=== PATIENT | male | born 1975 | race African-American/Black ===

== ENCOUNTER 2016-02-27 17:00 | Emergency (ER) | payer OTHER ==
[~2016-02-27] VITALS: Ht 190.5 cm; Wt 126.1 kg
--- NOTE | ~2016-02-27 | EKG ---
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
[2016-02-27 18:37] LABS: ABSOLUTE NEUTROPHILS 8.1 thou/uL (1.4-8.2); EOSINOPHILS 0.7 % (0.0-3.0); HEMATOCRIT 41.3 % (42.0-52.0); HEMOGLOBIN 13.7 gm/dL (14.0-18.0); LYMPHOCYTES 32.2 % (24.0-44.0); MCH 26.9 pg (26.0-34.0); MCHC 33.1 % (28.0-37.0); MCV 81.3 fL (80.0-100.0); MONOCYTES 8.6 % (1.0-8.0); PLATELET COUNT 260 thou/uL (150-400); POLYS 57.5 % (36.0-66.0); RBC 5.09 mil/uL (4.50-6.00); RDW 14.9 % (10.5-14.5)
[2016-02-27 18:45] LABS: MANUAL DIFF NO
[2016-02-27 18:51] LABS: CALCIUM 9.6 mg/dL (8.5-10.1); CREATININE 0.9 mg/dL (0.6-1.3); POTASSIUM 3.9 mmol/L (3.5-5.1)
[2016-02-27 18:53] LABS: AMP/METHAMP Negative (Negative); BARBITURATES Negative (Negative); BENZODIAZEPINES Negative (Negative); COCAINE Negative (Negative); METHADONE Negative (Negative); OPIATES Negative (Negative); PCP POSITIVE (Negative); THC POSITIVE (Negative)
[2016-02-27 18:58] LABS: ALBUMIN 4.2 g/dL (3.4-5.0); SALICYLATE 6.5 mg/dL (2.8-20.0); TOTAL BILIRUBIN 0.4 mg/dL (<0.1-1.0)
[2016-02-27 20:01] VITALS: BP 133/75
== END 2016-02-27 20:01 | disposition home or self-care (01) ==
LOC: ER 17:00
PROVIDERS: Physician Assistant
DX: F41.8 Other specified anxiety disorders (principal); Z71.51 Drug abuse counseling and surveillance of drug abuser; I10 Essential (primary) hypertension; F31.9 Bipolar disorder, unspecified; F17.210 Nicotine dependence, cigarettes, uncomplicated; F55.8 Abuse of other non-psychoactive substances; F10.99 Alcohol use, unspecified with unspecified alcohol-induced disorder; Z88.5 Allergy status to narcotic agent; Z88.8 Allergy status to other drugs, medicaments and biological substances

== ENCOUNTER 2016-09-01 16:41 | Inpatient (IN) | payer OTHER ==
[~2016-09-01] VITALS: Ht 188 cm; Wt 111.3 kg
--- NOTE | ~2016-09-01 | EKG ---
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
--- NOTE | ~2016-09-01 | EKG ---
[address] [address] ELECTROCARDIOGRAM REPORT Name: ELI BRAVO Room #: 240-[facility] IN M.R.#: [id number] Admission: 09/01/16 Attend Phys: Burt Looney MD Discharge: 09/05/16 Date of : 75 Report #: [id number] THIS REPORT FOR: //name// [facility] Test Date: 2016-09-02 Test Time: 07:51:50 Pat Name: ELI BRAVO Department: Room: 240 Gender: M Director Of Ancillary Services: Matt WATT : 1975 Requested By: Allie Rizvi Order Number: [id number] MD: Richar Olivares Measurements Intervals [place] Rate: 52 P: 21 AR: 206 QRS: 13 QRSD: 99 T: 21 QT: 452 QTc: 421 Interpretive Statements Sinus rhythm Borderline prolonged AR interval Probable left ventricular hypertrophy Compared to ECG 08/23/2016 11:17:35 No significant changes Electronically Signed On 09-05-2016 21:57:18 CDT by Richar Olivares [email or web address] <ELECTRONICALLY SIGNED> By: Richar Olivares MD 09/05/16 [id number] Richar Olivares MD /EPI
[~2016-09-01 16:41] MED LIST: GLUCOPHAGE500 MG PO; TEGRETOL200 MG PO
[2016-09-01 16:43] VITALS: BP 120/68
[2016-09-01 17:00] LABS: ABSOLUTE NEUTROPHILS 10.4 thou/uL (1.4-8.2); BASOPHILS 0.7 % (0.0-2.0); EOSINOPHILS 0.2 % (0.0-3.0); HEMOGLOBIN 13.5 gm/dL (14.0-18.0); MCH 27.3 pg (26.0-34.0); MCHC 32.8 g/dL (28.0-37.0); MCV 83.1 fL (80.0-100.0); MONOCYTES 6.9 % (1.0-8.0); PLATELET COUNT 228 thou/uL (150-400); POLYS 78.2 % (36.0-66.0); RBC 4.94 mil/uL (4.50-6.00); RDW 14.6 % (10.5-14.5); WBC 13.4 thou/uL (4.0-11.0)
[2016-09-01 17:02] LABS: MANUAL DIFF NO
[2016-09-01 17:08] LABS: ANION GAP 13 mmol/L (7-16); BUN 12 mg/dL (7-18); CALCIUM 9.8 mg/dL (8.5-10.1); CHLORIDE 106 mmol/L (98-107); CO2 23 mmol/L (21-32); CREATININE 1.1 mg/dL (0.7-1.3); GLUCOSE 102 mg/dL (74-106); POTASSIUM 3.3 mmol/L (3.5-5.1); SODIUM 142 mmol/L (136-145)
[2016-09-01 17:18] LABS: ALKALINE PHOSPHATASE 76 U/L (46-116); MAGNESIUM 1.9 mg/dL (1.8-2.4); SGOT 40 U/L (15-37); SGPT 32 U/L (30-65); TOTAL BILIRUBIN 0.3 mg/dL (<0.1-1.0); TOTAL PROTEIN 7.8 g/dL (6.4-8.2); TROPONIN-I < 0.04 ng/mL (<0.04-0.07)
[2016-09-01 19:31] VITALS: BP 95/46
[2016-09-01 19:47] VITALS: BP 113/62
[2016-09-01 23:36] VITALS: BP 113/64
[2016-09-02 03:25] VITALS: BP 113/67
[2016-09-02 03:30] LABS: HEMATOCRIT 39.4 % (42.0-52.0); HEMOGLOBIN 12.8 gm/dL (14.0-18.0); MCH 27.2 pg (26.0-34.0); MCHC 32.4 g/dL (28.0-37.0); MCV 83.9 fL (80.0-100.0); RBC 4.7 mil/uL (4.50-6.00); RDW 14.8 % (10.5-14.5); WBC 14.6 thou/uL (4.0-11.0)
[2016-09-02 03:54] LABS: ANION GAP 8 mmol/L (7-16); BUN 10 mg/dL (7-18); CALCIUM 8.6 mg/dL (8.5-10.1); CHLORIDE 106 mmol/L (98-107); CHOLESTEROL 149 mg/dL (<200); CO2 29 mmol/L (21-32); CREATININE 0.8 mg/dL (0.7-1.3); GLUCOSE 93 mg/dL (74-106); HDL CHOLESTEROL 51 mg/dL (>40); LDL CHOLESTEROL 81 mg/dL (<100); POTASSIUM 3.8 mmol/L (3.5-5.1); SODIUM 143 mmol/L (136-145); TC:HDL 2.9 Ratio (Not establshd); TRIGLYCERIDE 87 mg/dL (<150); TROPONIN-I 0.05 ng/mL (<0.04-0.07); VLDL 17 mg/dL (<40)
[2016-09-02 03:57] LABS: SERUM ASSESSMENT Clear
[2016-09-02 07:56] VITALS: BP 116/77
[2016-09-02] MEDS ORDERED: METFORMIN HCL500 MG PO (09:20)
[2016-09-02] MEDS ORDERED: LISINOPRIL-HCT1 EAC2 PO (09:21)
[2016-09-02] MEDS ORDERED: MOBIC15 MG PO (09:22)
[2016-09-02] MEDS ORDERED: ASPIR 8181 M1 PO (09:23)
[2016-09-02] MEDS ORDERED: CLARITIN10 MG PO (09:24)
[2016-09-02] MEDS ORDERED: REMERON15 MG PO ×2 (09:25)
[2016-09-02] MEDS ORDERED: NEURONTIN250 MG/5 M PO (09:27)
[2016-09-02 16:10] VITALS: BP 123/66
[2016-09-02 19:28] VITALS: BP 127/59
[2016-09-02 23:40] VITALS: BP 124/76
[2016-09-03 03:02] VITALS: BP 122/77
[2016-09-03 08:14] VITALS: BP 142/70
[2016-09-03 12:49] VITALS: BP 144/96
[2016-09-03 16:30] VITALS: BP 116/62
[2016-09-03 20:04] VITALS: BP 105/52
[2016-09-03 23:56] VITALS: BP 111/78
[2016-09-04 04:01] VITALS: BP 104/60
[2016-09-04 12:00] VITALS: BP 114/61
[2016-09-04 21:45] LABS: AMP/METHAMP Negative (Negative); BARBITURATES Negative (Negative); BENZODIAZEPINES Negative (Negative); COCAINE Negative (Negative); METHADONE Negative (Negative); OPIATES Negative (Negative); PCP POSITIVE (Negative); THC POSITIVE (Negative)
[2016-09-04 22:47] VITALS: BP 127/83
== END 2016-09-05 00:20 | DRG 101 ==
LOC: ER 16:41 → 2N 17:56 → ICU 17:56 → 2N 17:56 → EROBS 17:56 → 2N 19:25 → ICU 09-02 18:30
PROVIDERS: Nurse Practitioner; Physician Assistant
DX: G40.909 Epilepsy, unspecified, not intractable, without status epilepticus (principal); E87.6 Hypokalemia; I10 Essential (primary) hypertension; F17.210 Nicotine dependence, cigarettes, uncomplicated; F12.90 Cannabis use, unspecified, uncomplicated; F16.10 Hallucinogen abuse, uncomplicated; F31.9 Bipolar disorder, unspecified; E11.9 Type 2 diabetes mellitus without complications; R94.31 Abnormal electrocardiogram [ECG] [EKG]; Z91.5 Personal history of self-harm; Z79.899 Other long term (current) drug therapy; Z88.6 Allergy status to analgesic agent; Z88.8 Allergy status to other drugs, medicaments and biological substances; Z71.6 Tobacco abuse counseling; Z79.4 Long term (current) use of insulin; Z85.47 Personal history of malignant neoplasm of testis
CPT/HCPCS: 10078; 10081

== ENCOUNTER 2017-12-22 23:15 | Emergency (ER) | payer OTHER ==
[~2017-12-22] VITALS: Ht 190.5 cm; Wt 121.6 kg
[~2017-12-22 23:15] MED LIST changes: +ASPIR 8181 M1 PO; +CLARITIN10 MG PO; +LISINOPRIL-HCT1 EAC2 PO; +METFORMIN HCL500 MG PO; +MOBIC15 MG PO; +NEURONTIN250 MG/5 M PO; +REMERON15 MG PO
[2017-12-23 00:26] VITALS: BP 141/75
== END 2017-12-23 00:48 | disposition home or self-care (01) ==
LOC: ER 23:15
DX: F19.10 Other psychoactive substance abuse, uncomplicated (principal); F17.210 Nicotine dependence, cigarettes, uncomplicated; I10 Essential (primary) hypertension; F31.9 Bipolar disorder, unspecified; F42.9 Obsessive-compulsive disorder, unspecified; Z88.5 Allergy status to narcotic agent; Z88.8 Allergy status to other drugs, medicaments and biological substances

== ENCOUNTER 2019-12-07 13:48 | Emergency (ER) | payer OTHER ==
[~2019-12-07] VITALS: Ht 208.3 cm; Wt 156.5 kg
--- NOTE | 2019-12-07 15:45 | EKG ---
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
[2019-12-07 15:54] LABS: URINE BILIRUBIN NEGATIVE (Negative); URINE BLOOD NEGATIVE (Negative); URINE CLARITY CLEAR; URINE COLOR YELLOW; URINE GLUCOSE-RANDOM* NEGATIVE (Negative); URINE KETONES NEGATIVE (Negative); URINE LEUKOCYTES-REFLEX NEGATIVE (Negative); URINE NITRITE-REFLEX NEGATIVE (Negative); URINE PROTEIN (DIPSTICK) NEGATIVE (Negative); URINE SPECIFIC GRAVITY <= 1.005 (1.005-1.035); URINE UROBILINOGEN 0.2 E.U./dl (0.2-1.0)
[2019-12-07 15:56] LABS: AMP/METHAMP Negative (Negative); BARBITURATES Negative (Negative); BENZODIAZEPINES Negative (Negative); COCAINE Negative (Negative); METHADONE Negative (Negative); OPIATES Negative (Negative); PCP POSITIVE (Negative)
[2019-12-07 16:15] LABS: ABSOLUTE NEUTROPHILS 9.5 thou/uL (1.4-8.2); BASOPHILS 0.8 % (0.0-2.0); EOSINOPHILS 0.1 % (0.0-3.0); HEMATOCRIT 44.5 % (42.0-52.0); HEMOGLOBIN 14.3 gm/dL (14.0-18.0); LYMPHOCYTES 16.8 % (24.0-44.0); MCH 27.1 pg (26.0-34.0); MCHC 32.1 g/dL (28.0-37.0); MCV 84.4 fL (80.0-100.0); MONOCYTES 4.4 % (1.0-8.0); PLATELET COUNT 243 thou/uL (150-400); POLYS 77.9 % (36.0-66.0); RBC 5.27 mil/uL (4.50-6.00); RDW 14.8 % (10.5-14.5); WBC 12.2 thou/uL (4.0-11.0)
[2019-12-07 16:36] LABS: ANION GAP 13 mmol/L (7-16); BUN 7 mg/dL (7-18); CALCIUM 9.9 mg/dL (8.5-10.1); CHLORIDE 107 mmol/L (98-107); CO2 21 mmol/L (21-32); GLUCOSE 97 mg/dL (74-106); SODIUM 141 mmol/L (136-145)
[2019-12-07 16:40] LABS: ALBUMIN 4.2 g/dL (3.4-5.0); SGOT 23 U/L (15-37); SGPT 31 U/L (30-65); TOTAL BILIRUBIN 0.4 mg/dL (0.2-1.0); TOTAL PROTEIN 8.4 g/dL (6.4-8.2); TROPONIN-I <0.06 ng/mL (<0.06)
[2019-12-07 17:15] VITALS: BP 139/85
== END 2019-12-07 17:15 | disposition home or self-care (01) ==
LOC: ER 13:48
PROVIDERS: Nurse Practitioner
DX: F16.10 Hallucinogen abuse, uncomplicated (principal); R41.82 Altered mental status, unspecified; I10 Essential (primary) hypertension; F31.9 Bipolar disorder, unspecified; F42.9 Obsessive-compulsive disorder, unspecified; F17.210 Nicotine dependence, cigarettes, uncomplicated; Z79.899 Other long term (current) drug therapy; Z79.82 Long term (current) use of aspirin; Z88.8 Allergy status to other drugs, medicaments and biological substances; Z88.5 Allergy status to narcotic agent